=== PATIENT | female | born 1940 | race Caucasian/White ===

== ENCOUNTER → 2016-05-31 | Outpatient (CLI) | payer OTHER, MEDICARE ==
--- NOTE | 2016-05-31 15:10 | MG ---
HISTORY: Six-month followup right breast focal asymmetry Right breast digital diagnostic mammography with CAD. Comparison: Multiple priors dating back to August 28, 2011 FINDINGS: CC and MLO projections of the right breast were obtained. Scattered fibroglandular tissue is seen t o be present with the previously described focal asymmetry slightly less prominent as compared to th e most recent prior and demonstrating a similar appearance as compared to the more remote exams. No underlying or new/developing suspicious architectural distortion, mass or clustered microcalcificat ions can be observed to suggest malignancy. No skin thickening or nipple retraction is appreciated. No pathological lymphadenopathy can be identified. Benign-appearing calcifications are noted. IMPRESSION: NO RADIOGRAPHIC EVIDENCE OF MALIGNANCY. ACR CATEGORY 2 - benign findings. Return to bilateral mammographic screening in October 2016. Diagnostic CAD was utilized and reviewed. * 0 (ZERO) - ASSESSMENT INCOMPLETE; ADDITIONAL IMAGING IS NEEDED. * 1/1 (ONE) - NEGATIVE. * 2/II (TWO) - BENIGN FINDINGS. * 3/III (THREE) - PROBABLY BENIGN FINDING; SHORT INTERVAL FOLLOW-UP SUGGESTED. * 4/IV (FOUR) - SUSPICIOUS ABNORMALITY; BIOPSY SHOULD BE CONSIDERED. * 5/V (FIVE) - HIGHLY SUSPICIOUS OF MALIGNANCY; BIOPSY SHOULD BE PERFORMED. A NEGATIVE X-RAY REPORT SHOULD NOT DELAY BIOPSY IF A DOMINANT OR CLINICALLY SUSPICIOUS MASS IS PRESENT; 4 TO 8 PERCENT OF CANCERS ARE NOT IDENTIFIED BY X-RAY. A NEG ATIVE REPORT MAY REINFORCE THE CLINICAL IMPRESSION. ADENOSIS AND DENSE BREASTS MAY OBSCURE AN UNDER LYING NEOPLASM. Reported By:
== END ==
LOC: RAD 13:27
PROVIDERS: ATTEND Specialist
DX: R92.8 Other abnormal and inconclusive findings on diagnostic imaging of breast (principal)
CPT/HCPCS: 77065

== ENCOUNTER → 2016-11-12 | Outpatient (CLI) | payer OTHER, MEDICARE ==
--- NOTE | 2016-11-12 18:45 | MG ---
HISTORY: SCREENING Comparison: May 31, 2016 and October 24, 2015 FINDINGS: Bilateral CC and MLO projections of the right and left breast were obtained. Heterogeneously dense f ibroglandular tissue is seen to be present. No significant architectural distortion, mass or cluster ed microcalcifications can be observed to suggest malignancy. No skin thickening or nipple retractio n is appreciated. No pathological lymphadenopathy can be identified. Benign-appearing calcification s scattered throughout the right and left breasts are observed. IMPRESSION: NO RADIOGRAPHIC EVIDENCE OF MALIGNANCY. ACR CATEGORY: 2 - benign findings. FOLLOW-UP EXAM 1 YEAR. Diagnostic CAD was utilized and reviewed. * 0 (ZERO) - ASSESSMENT INCOMPLETE; ADDITIONAL IMAGING IS NEEDED. * 1/1 (ONE) - NEGATIVE. * 2/II (TWO) - BENIGN FINDINGS. * 3/III (THREE) - PROBABLY BENIGN FINDING; SHORT INTERVAL FOLLOW-UP SUGGESTED. * 4/IV (FOUR) - SUSPICIOUS ABNORMALITY; BIOPSY SHOULD BE CONSIDERED. * 5/V - HIGHLY SUSPICIOUS OF MALIGNANCY; BIOPSY SHOULD BE PERFORMED. A NEGATIVE X-RAY REPORT SHOULD NOT DELAY BIOPSY IF A DOMINANT OR CLINICALLY SUSPICIOUS MASS IS PRESENT; 4 TO 8 PERCENT OF CANCERS ARE NOT IDENTIFIED BY X-RAY. A NEGA TIVE REPORT MAY REINFORCE THE CLINICAL IMPRESSION. ADENOSIS AND DENSE BREASTS MAY OBSCURE AN UNDERLY ING NEOPLASM. Reported By:
== END ==
LOC: RAD 10:16
PROVIDERS: ATTEND Specialist
DX: Z12.31 Encounter for screening mammogram for malignant neoplasm of breast (principal)
CPT/HCPCS: 77067

== ENCOUNTER 2018-12-17 18:20 | Observation (INO) ==
[2018-12-17 18:41] VITALS: BMI 27.4
[2018-12-17] MEDS ORDERED: NS 1000 ML 1,000 ML IV ONE (19:30)
[2018-12-17 19:52] LABS: BASOPHILS % (AUTO) 0.1 % (0.2-1.0); EOSINOPHILS % (AUTO) 0.1 % (0.9-2.9); HEMATOCRIT 49.9 % (36.0-47.0); HEMOGLOBIN 17.1 g/dL (12.0-16.0); LYMPHOCYTES # (AUTO) 1.9 X10^3/uL (1.3-2.9); LYMPHOCYTES % (AUTO) 8.1 % (21.0-51.0); MEAN CORPUSCULAR HEMOGLOBIN 29.4 pg (27.0-34.0); MEAN CORPUSCULAR HGB CONC 34.2 g/dL (33.0-35.0); MEAN CORPUSCULAR VOLUME 85.8 fL (80.0-100.0); MEAN PLATELET VOLUME 7.8 fL (7.4-11.0); MONOCYTES # (AUTO) 1.5 x10^3/uL (0.3-0.8); MONOCYTES % (AUTO) 6.7 % (0.0-13.0); NEUTROPHILS # (AUTO) 19.6 x10^3/uL (2.2-4.8); PLATELET COUNT 293 X10^3/uL (150.0-450.0); RED BLOOD COUNT 5.82 X10^6/uL (3.5-5.4); WHITE BLOOD COUNT 23.1 X10^3/uL (3.6-10.0)
[2018-12-17] MEDS ORDERED: ZOFRAN INJ 4 MG VIAL IVP ONE (19:55)
[2018-12-17] MEDS ORDERED: PEPCID 20 MG IV PREMIX* 20 MG/50 ML BAG IV ONE ×2 (19:55→20:04)
[2018-12-17] MEDS ORDERED: DEMEROL INJ IVP ONE (19:55)
--- NOTE | 2018-12-17 19:57 | DR.DIARMA ---
HPI Time seen Time Seen by Provider: 12/17/18 19:55 PCP Primary Care Physician: DR. SEXTON Complaint Chief Complaint:: STATES SHE BELIEVES SHE HAS A BOWEL OBSTRUCTION. STATES HER LAST BOWEL MOVEMENT WAS 4 DAYS AGO. STATES SHE DID A ENEMA AND HAD NO RESULTS. Source History Provided: Patient Mode of Arrival Mode of Arrival: Wheelchair Timing Onset of Chief Complaint: 12/13/18 PMH PMH Past Medical History: Yes Past Medical History: Diabetes and Hypothyroidism Past Surgical History: Yes Surgical History: Appendectomy and Hysterectomy Past Surgical History Comment: BLADDER TACT RIGHT BREAST BIOPSY Family History History of Family Medical Conditions: Yes Family Medical History: Diabetes Mellitus Family Medical History Comment: HYPOTHYROIDISM Social History Does any household member use tobacco: No Alcohol Use: None Do you use any recreational Drugs:: No Lives With: Alone Lives Where: Home infectious screening In the last 2 months have you had wt loss of >10#?: NO Have you had fever, night sweats or hemotysis?: No Have you traveled outside the country in the last 6 months?: No Isolation: Standard PE Vital Signs Vitals: Temperature 97.4 F Pulse Rate [Left] 90 Pulse Rate 95 Respiratory Rate 18 Blood Pressure [Left Arm] 149/69 Blood Pressure 146/67 O2 Sat by Pulse Oximetry 98 ROR Labs Reviewed Result Diagrams: 12/17/18 19:46 12/17/18 19:46 Laboratory: WBC 23.1 X10^3/uL (3.6-10.0) H 12/17/18 19:46 RBC 5.82 X10^6/uL (3.5-5.4) H 12/17/18 19:46 Hgb 17.1 g/dL (12.0-16.0) H 12/17/18 19:46 Hct 49.9 % (36.0-47.0) H 12/17/18 19:46 MCV 85.8 fL (80.0-100.0) 12/17/18 19:46 MCH 29.4 pg (27.0-34.0) 12/17/18 19:46 MCHC 34.2 g/dL (33.0-35.0) 12/17/18 19:46 RDW 14.0 % (11.6-16.5) 12/17/18 19:46 Plt Count 293 X10^3/uL (150.0-450.0) 12/17/18 19:46 Plt Count Comment Adequate (ADEQUATE) 12/17/18 19:46 MPV 7.8 fL (7.4-11.0) 12/17/18 19:46 Neut % (Auto) 85.0 % (42.0-75.0) H 12/17/18 19:46 Lymph % (Auto) 8.1 % (21.0-51.0) L 12/17/18 19:46 Graham % (Auto) 6.7 % (0.0-13.0) 12/17/18 19:46 Eos % (Auto) 0.1 % (0.9-2.9) L 12/17/18 19:46 Baso % (Auto) 0.1 % (0.2-1.0) L 12/17/18 19:46 Neut # (Auto) 19.6 x10^3/uL (2.2-4.8) H 12/17/18 19:46 Lymph # (Auto) 1.9 X10^3/uL (1.3-2.9) 12/17/18 19:46 Graham # (Auto) 1.5 x10^3/uL (0.3-0.8) H 12/17/18 19:46 Eos # (Auto) 0.0 x10^3/uL (0.0-0.2) 12/17/18 19:46 Baso # (Auto) 0.0 X10^3/uL (0.0-0.1) 12/17/18 19:46 Absolute Nucleated RBC 0.0 /100WBC 12/17/18 19:46 Total Counted 100 12/17/18 19:46 Neutrophils % (Manual) 76 % (39-76) 12/17/18 19:46 Band Neutrophils % 6 % (0-10) 12/17/18 19:46 Lymphocytes % (Manual) 8 % (13-43) L 12/17/18 19:46 Monocytes % (Manual) 9 % (4-9) 12/17/18 19:46 Eosinophils % (Manual) 1 % (0-6) 12/17/18 19:46 Plt Morphology Comment Normal (NORMAL) 12/17/18 19:46 RBC Morphology Normal (NORMAL) 12/17/18 19:46 Sodium 141 mmol/L (136-145) 12/17/18 19:46 Corrected Sodium 143 mmol/L (136-145) 12/17/18 19:46 Potassium 4.0 mmol/L (3.5-5.1) 12/17/18 19:46 Chloride 103 mmol/L (98-107) 12/17/18 19:46 Carbon Dioxide 25.0 mmol/L (21-32) 12/17/18 19:46 BUN 30 mg/dL (7-18) H 12/17/18 19:46 Creatinine 1.09 mg/dL (0.55-1.02) H 12/17/18 19:46 Est GFR (MDRD) Af Amer > 60 (>60) 12/17/18 19:46 Est GFR (MDRD) Non-Af 52 (>60) L 12/17/18 19:46 Glucose 187 mg/dL (65-99) H 12/17/18 19:46 Calcium 9.8 mg/dL (8.5-10.1) 12/17/18 19:46 Corrected Calcium TNP 12/17/18 19:46 Total Bilirubin 0.30 mg/dL (0.2-1.0) 12/17/18 19:46 AST 20 Units/L (15-37) 12/17/18 19:46 ALT 37 Units/L (12-78) 12/17/18 19:46 Alkaline Phosphatase 71 Units/L (46-116) 12/17/18 19:46 Total Protein 8.3 g/dL (6.4-8.2) H 12/17/18 19:46 Albumin 4.3 g/dL (3.4-5.0) 12/17/18 19:46 Globulin 4.0 g/dL (2.5-4.5) 12/17/18 19:46 Albumin/Globulin Ratio 1.1 Ratio (1.1-2.1) 12/17/18 19:46 Amylase 41 Units/L (25-115) 12/17/18 19:46 Lipase 171 Units/L (73-393) 12/17/18 19:46 Opioid Opioid Risk Tool Age (All box if 16-45): No Total: 0 Total Score Risk Category: Low Risk Copyright: Boris KING predicting aberrant behaviors Diagnosis Discharge Problem: Diarrhea in adult patient, Acute dehydration, Generalized weakness Sinusitis Qualifiers: Sinusitis location: unspecified location Chronicity: acute Recurrence: not specified as recurrent Qualified Code(s): J01.90 - Acute sinusitis, unspecified Instructions Forms: Excuse From Work Patient Portal
[2018-12-17] MEDS ORDERED: NS 1000 ML 1,000 ML IV SCH (20:00)
[2018-12-17 20:04] LABS: ALANINE AMINOTRANSFERASE 37 Units/L (12-78); ALBUMIN 4.3 g/dL (3.4-5.0); ALKALINE PHOSPHATASE 71 Units/L (46-116); AMYLASE 41 Units/L (25-115); ASPARTATE AMINO TRANSFERASE 20 Units/L (15-37); BAND NEUTROPHILS % 6 % (0-10); BLOOD UREA NITROGEN 30 mg/dL (7-18); CALCIUM 9.8 mg/dL (8.5-10.1); CHLORIDE 103 mmol/L (98-107); COR NA(FOR HYPERGLY) 143 mmol/L (136-145); CREATININE 1.09 mg/dL (0.55-1.02); LIPASE 171 Units/L (73-393); PLATELET MORPHOLOGY COMMENT NORMAL (NORMAL); SODIUM 141 mmol/L (136-145); TOTAL PROTEIN 8.3 g/dL (6.4-8.2); eGFR NON BLACK RACES 52 (>60)
[2018-12-17] MEDS ORDERED: ZOFRAN INJ 4 MG VIAL ONE (20:04)
[2018-12-17] MEDS ORDERED: DEMEROL INJ ONE (20:05)
--- NOTE | 2018-12-17 21:30 | RAD ---
AP abdomen Indication: Constipation, concern for bowel obstruction Comparison: None Findings: Mildly increased colonic stool burden is noted distally. The more proximal large and small bowel loops are not dilated. No gross free air. Impression: Suggestion of mild constipation, without convincing bowel obstruction. Reported By:
[2018-12-17] MEDS ORDERED: ZOSYN VIAL 3.375 GRAMS 3.375 G in NS 100 ML IV + SPIKE MINIBAG* 100 ML IV ONE (23:34)
[2018-12-18] MEDS ORDERED: ZOSYN VIAL 3.375 GRAMS IV ONE ×2 (00:09→05:03)
[2018-12-18] MEDS ORDERED: NS 100 ML IV + SPIKE MINIBAG* 100 ML IV ONE ×3 (00:09→13:50)
--- NOTE | 2018-12-18 00:20 | CT ---
CT abdomen and pelvis with contrast Indication: Abdominal pain Comparison: None available Technique: Multiple axial images of the abdomen and pelvis were obtained from the lung bases to the pubic symphysis after the administration of IV contrast. Coronal and sagittal reformatted images were also provided. Dose reduction techniques including automated exposure control (AEC) and adjustment of mA and kV were utilized. Findings: The lung bases are clear. No focal hepatic lesion. The gallbladder, bile ducts, spleen, pancreas and adrenal glands are normal. The right kidney demonstrates no nephrolithiasis, hydronephrosis or mass. Punctate stone is noted within1 the midpole left kidney. No left-sided ureteral stone or mass. Urinary bladder is distended. No pelvic or adnexal mass. There is increased fecal material within the rectum with rectal wall thickening and perirectal inflammatory change. No definite perirectal lymphadenopathy. The colon demonstrates mild increased fluid distention proximally. The appendix is not visualized. The terminal ileum is within normal limits. Abdominal aorta is normal in caliber. No adenopathy. Review of bone windows demonstrates no acute osseous abnormality. Impression: 1.Increased fecal material within the colon with increased thickening of the rectal wall and perirectal stranding raises the concern for underlying rectal mass or proctitis. Correlation with digital rectal examination and proctoscopy is recommended for further evaluation. Increased amount of liquid stool within the colon. 2. Refer to above for incidental, nonacute findings. IMPRESSION: Reported By:
--- NOTE | 2018-12-18 00:22 | RAD ---
AP Chest Indication: Abdominal pain Comparison: None available Findings: The trachea is midline. The cardiac silhouette is unremarkable. Calcified pleural/pulmonary nodule noted within the right lower lobe. The lungs are clear without focal infiltrate or effusion. The bony thorax is unremarkable. IMPRESSION: 1. No acute cardiopulmonary abnormality. Reported By:
[2018-12-18] MEDS ORDERED: HumuLIN R SC PRN (00:54)
[2018-12-18] MEDS ORDERED: ZOFRAN INJ 4 MG VIAL IVP PRN (00:54)
[2018-12-18] MEDS ORDERED: MORPHINE SULFATE INJ 2 MG INJ IVP PRN (01:49)
[2018-12-18] MEDS ORDERED: PEPCID 20 MG IV PREMIX* 20 MG/50 ML BAG IV SCH ×2 (01:49→09:00)
[2018-12-18] MEDS: NS 1000 ML 1,000 ML IV SCH ×3 (01:55→11:30)
[2018-12-18] MEDS ORDERED: MORPHINE SULFATE INJ 2 MG INJ ONE (02:07)
[2018-12-18] MEDS ORDERED: ZOSYN VIAL 3.375 GRAMS IV SCH (06:00)
[2018-12-18 06:28] LABS: BASOPHILS # (AUTO) 0.1 X10^3/uL (0.0-0.1); BASOPHILS % (AUTO) 0.6 % (0.2-1.0); EOSINOPHILS % (AUTO) 0.1 % (0.9-2.9); HEMATOCRIT 43.3 % (36.0-47.0); HEMOGLOBIN 14.6 g/dL (12.0-16.0); LYMPHOCYTES # (AUTO) 3.6 X10^3/uL (1.3-2.9); LYMPHOCYTES % (AUTO) 23.5 % (21.0-51.0); MEAN CORPUSCULAR HGB CONC 33.7 g/dL (33.0-35.0); MEAN PLATELET VOLUME 8.2 fL (7.4-11.0); MONOCYTES # (AUTO) 1.3 x10^3/uL (0.3-0.8); MONOCYTES % (AUTO) 8.8 % (0.0-13.0); NEUTROPHILS # (AUTO) 10.1 x10^3/uL (2.2-4.8); PLATELET COUNT 250 X10^3/uL (150.0-450.0); RED BLOOD COUNT 5.03 X10^6/uL (3.5-5.4); RED CELL DISTRIBUTION WIDTH 14.1 % (11.6-16.5); WHITE BLOOD COUNT 15.1 X10^3/uL (3.6-10.0)
[2018-12-18 06:34] LABS: ALANINE AMINOTRANSFERASE 27 Units/L (12-78); ALBUMIN 3.5 g/dL (3.4-5.0); ALKALINE PHOSPHATASE 52 Units/L (46-116); ASPARTATE AMINO TRANSFERASE 17 Units/L (15-37); BLOOD UREA NITROGEN 25 mg/dL (7-18); CALCIUM 8.6 mg/dL (8.5-10.1); CHLORIDE 105 mmol/L (98-107); COR NA(FOR HYPERGLY) 140 mmol/L (136-145); CREATININE 0.97 mg/dL (0.55-1.02); SODIUM 139 mmol/L (136-145); TOTAL PROTEIN 6.7 g/dL (6.4-8.2); eGFR NON BLACK RACES 59 (>60)
[2018-12-18] MEDS: SYNTHROID 25 mcg TAB PO SCH ×2 (07:18→07:23)
[2018-12-18] MEDS ORDERED: LEVOTHYROXINE 25 MCG PO SCH (09:00)
[2018-12-18] MEDS: PEPCID 20 MG IV PREMIX* 20 MG/50 ML BAG IV SCH (09:47)
[2018-12-18] MEDS ORDERED: DILAUDID INJ IVP PRN (11:08)
[2018-12-18] MEDS: LOVENOX INJ 40 MG SYR SC SCH (11:08)
[2018-12-18] MEDS: COLACE CAP 100 MG PO SCH ×2 (11:40→20:24)
[2018-12-18] MEDS: MIRALAX POWDER (1 DOSE 17 G) PO SCH (11:41)
[2018-12-18] MEDS: ZOSYN VIAL 3.375 GRAMS 3.375 G in NS 100 ML IV + SPIKE MINIBAG* 100 ML IV SCH ×2 (14:11→21:40)
[2018-12-18] MEDS: MILK OF MAGNESIA PO SCH ×3 (14:12→20:24)
[2018-12-18 15:47] LABS: CRYPTOSPORIDIUM PARVUM ANTIGEN NEGATIVE (NEGATIVE); GIARDIA LAMBLIA ANTIGEN NEGATIVE (NEGATIVE)
--- NOTE | 2018-12-18 21:04 | DR.H&P ---
H&P - History & Physical for Day of: H&P Date: 12/18/18 - Chief Complaint Chief Complaint: ABDOMINAL PAIN, CONSTIPATION - History of Present Illness History of Present Illness: IS A 78 YEAR OLD PATIENT OF OURS WHO PRESENTED TO THE ER WITH COMPLAINTS OF ABDOMINAL PAIN AND CONSTIPATION. SHE REPORTS THAT SYMPTOMS STARTED 4 DAYS PRIOR. SHE HAS A HISTORY OF SMALL BOWEL RESECTION. SHE SELF ADMINISTERED A FLEETS ENEMA AT HOME WITHOUT RESULTS. ON ARRIVAL, VITALS WERE 97.4-103-18-98%-146/73. LABS WERE OBTAINED. ABNORMAL LAB VALUES INCLUDE THE FOLLOWING: WBC 23.1, RBC 5.82, HGB 17.1, HCT 49.9, BUN 30, CREATININE 1.09, GLUCOSE 187, TOTAL PROTEIN 8.3. BLOOD CULTURES OBTAINED. STOOL STUDIES WERE OBTAINED. STOOL IS POSITIVE FOR OCCULT BLOOD AND WHITE CELLS. A KUB WAS OBTAINED AND REVEALED: SUGGESTION OF MILD CONSTIPATION, WITHOUT CONVINCING OBSTRUCTION. AN ABDOMEN/PELVIS CT WAS OBTAINED AND REVEALED: Increased fecal material within the colon with increased thickening of the rectal wall and perirectal stranding raises the concern for underlying rectal mass or proctitis. Correlation with digital rectal examination and proctoscopy is recommended for further evaluation. Increased amount of liquid stool within the colon. A CHEST XRAY WAS OBTAINED AND REVEALED: NO ACUTE CARDIOPULMONARY ABNORMALITY. SHE WAS GIVEN ZOSYN 3.375G IV X 1 DOSE, MORPHINE 2MG IV X 1, ZOFRAN 4MG IV X 1 DOSE, PEPCID 20MG IV X 1 DOSE, DEMEROL 25MG IV X 1 DOSE, AND STARTED ON NORMAL SALINE IN THE ER. SHE WAS ADMITTED FOR FURTHER EVALUATION AND TREATMENT OF DEHYDRATION, GENERALIZED WEAKNESS, AND PROCTITIS. SHE WAS STARTED ON NORMAL SALINE AT 100ML/HR, ZOSYN 3.375G IV TID, PEPCID IV BID, ZOFRAN 4MG IV Q6H PRN, DILAUDID 2MG IV Q4H PRN, MIRALAX DAILY, MILK OF MAGNESIA QID, AND COLACE BID. OTHERWISE, WE PLAN TO FOLLOW UP WITH AM LABS AND CONTINUE TO MONITOR. - Past Medical History Past Medical History: Diabetes, Hypothyroidism - Past Surgical History Surgical History: Hysterectomy - Family History Family Medical History: Diabetes Mellitus - Social History Does any household member use tobacco: No Alcohol Use: None Drug Use: None - Medications Home Medications: Sulfa (Sulfonamide Antibiotics) [SULFA] Allergy (Verified 12/17/18 18:41) CONTINUE taking the following medications dapagliflozin [Farxiga] 10 mg PO DAILY 12/17/18 [History] insulin degludec-liraglutide [Xultophy 100/3.6] 16 ml SUBCUT DAILY 12/17/18 [History] thyroid (pork) 90 mg PO DAILY 12/18/18 [History] - Review of Systems Constitutional: Fever, Weakness Eyes: No Symptoms Reported ENT: No Symptoms Reported Respiratory: No Symptoms Reported Cardiovascular: No Symptoms Reported Gastrointestinal: Nausea, Abdominal Pain, Constipation Genitourinary: No Symptoms Reported Musculoskeletal: No Symptoms Reported Skin: No Symptoms Reported Neurological: Weakness - Physical Exam Vital Signs: Temperature 98.6 F Pulse Rate [Right Brachial] 74 Pulse Rate [Left] 80 Pulse Rate 98 Respiratory Rate 20 Blood Pressure [Right Arm] 122/64 Blood Pressure [Left Arm] 118/55 Blood Pressure 152/69 O2 Sat by Pulse Oximetry 98 Oriented: Normal Eyes: Normal Ear: Normal Nose: Normal Throat: Normal Respiratory: Diminished Throughout Cardiovascular: Normal. negative: S3, S4, Murmur : Normal Auscultation: Bowel Sounds: Normal Palpation: Normal Tenderness: Diffuse, Moderate. negative: Rebound, Guarding, Rigidity Skin: Normal Musculoskeletal: Normal Psychiatric: Normal Mood Description: Calm Affect: Normal Speech Pattern: Clear - Assessment/Plan (1) Proctitis Status: Acute Plan: IV ZOSYN, IV FLUIDS, CONTINUE TO MONITOR (2) Acute dehydration Status: Acute Plan: NORMAL SALINE AT 100ML/HR, CONTINUE TO MONITOR (3) Generalized weakness Status: Acute - Allergies Allergies/Adverse Reactions: Allergies Allergy/AdvReac Type Severity Reaction Status Date / Time Sulfa (Sulfonamide Allergy Verified 12/17/18 18:41 Antibiotics) [SULFA]
[2018-12-19] MEDS: NS 1000 ML 1,000 ML IV SCH ×2 (00:15→10:39)
[2018-12-19 05:42] LABS: BASOPHILS % (AUTO) 0.6 % (0.2-1.0); EOSINOPHILS # (AUTO) 0.4 x10^3/uL (0.0-0.2); EOSINOPHILS % (AUTO) 4.7 % (0.9-2.9); HEMATOCRIT 41.3 % (36.0-47.0); HEMOGLOBIN 14.2 g/dL (12.0-16.0); MEAN CORPUSCULAR HEMOGLOBIN 29.7 pg (27.0-34.0); MEAN CORPUSCULAR HGB CONC 34.3 g/dL (33.0-35.0); MEAN CORPUSCULAR VOLUME 86.5 fL (80.0-100.0); MEAN PLATELET VOLUME 7.9 fL (7.4-11.0); MONOCYTES # (AUTO) 0.8 x10^3/uL (0.3-0.8); MONOCYTES % (AUTO) 8.8 % (0.0-13.0); NEUTROPHILS # (AUTO) 4.4 x10^3/uL (2.2-4.8); NEUTROPHILS % (AUTO) 50.9 % (42.0-75.0); PLATELET COUNT 211 X10^3/uL (150.0-450.0); RED BLOOD COUNT 4.77 X10^6/uL (3.5-5.4); WHITE BLOOD COUNT 8.6 X10^3/uL (3.6-10.0)
[2018-12-19] MEDS: ZOSYN VIAL 3.375 GRAMS 3.375 G in NS 100 ML IV + SPIKE MINIBAG* 100 ML IV SCH (05:52)
[2018-12-19 05:58] LABS: ALANINE AMINOTRANSFERASE 23 Units/L (12-78); ALKALINE PHOSPHATASE 46 Units/L (46-116); ASPARTATE AMINO TRANSFERASE 18 Units/L (15-37); BLOOD UREA NITROGEN 13 mg/dL (7-18); CALCIUM 8.3 mg/dL (8.5-10.1); CARBON DIOXIDE 24.2 mmol/L (21-32); CHLORIDE 109 mmol/L (98-107); COR CA(FOR HYPOALB) 9.1 mg/dL (8.5-10.1); COR NA(FOR HYPERGLY) 142 mmol/L (136-145); CREATININE 0.92 mg/dL (0.55-1.02); SODIUM 141 mmol/L (136-145); TOTAL PROTEIN 6.3 g/dL (6.4-8.2); eGFR NON BLACK RACES > 60 (>60)
[2018-12-19] MEDS: PEPCID 20 MG IV PREMIX* 20 MG/50 ML BAG IV SCH (08:37)
[2018-12-19] MEDS: MILK OF MAGNESIA PO SCH (08:37)
[2018-12-19] MEDS: MIRALAX POWDER (1 DOSE 17 G) PO SCH (08:38)
[2018-12-19] MEDS: COLACE CAP 100 MG PO SCH (08:38)
[2018-12-19] MEDS: LOVENOX INJ 40 MG SYR SC SCH (08:45)
[2018-12-19] MEDS: SYNTHROID 25 mcg TAB PO SCH (10:39)
[2018-12-19 13:00] VITALS: BP 130/61
== END 2018-12-19 12:10 | disposition home or self-care (01) ==
LOC: ER 18:33 → MED/SURG 18:33
PROVIDERS: ADMIT Internal Medicine; ATTEND Internal Medicine
DX: E03.8 Other specified hypothyroidism; K92.1 Melena; E86.0 Dehydration; R53.1 Weakness; K62.89 Other specified diseases of anus and rectum; R10.84 Generalized abdominal pain; K59.09 Other constipation; J01.90 Acute sinusitis, unspecified; K52.9 Noninfective gastroenteritis and colitis, unspecified; E11.65 Type 2 diabetes mellitus with hyperglycemia
CPT/HCPCS: 36415; 71010; 71045; 74000; 74018; 74176; 80053; 82150; 82270; 82378; 83630; 83690; 85025; 87040; 87045; 87328; 87329; 87427; 87449; 87493; 87899; 96360; 96361; 96365; 96367; 96372; 96374; 96375; 97161; 99284; A4222; S0028; G0378; J1650; J2175; J2270; J2405; J2543; J7030; J7050